=== PATIENT | male | born 2000 | race Caucasian/White ===

== ENCOUNTER 2024-05-26 15:56 | Emergency (ER) | payer OTHER ==
[~2024-05-26] VITALS: Ht 195.6 cm; Wt 83.5 kg
[2024-05-26 19:02] VITALS: BP 143/84; TEMP 99.1; O2SAT 100
[2024-05-26] MEDS ORDERED: TRAM50TA2 PO (19:10)
[2024-05-26] MEDS ORDERED: IBUP-1022 PO (19:14)
== END 2024-05-26 19:29 | disposition home or self-care (01) ==
LOC: M ED 15:56
DX: S62.604A Fracture of unspecified phalanx of right ring finger, initial encounter for closed fracture (principal); Y92.9 Unspecified place or not applicable; Y93.9 Activity, unspecified; Y99.0 Civilian activity done for income or pay; Z79.1 Long term (current) use of non-steroidal anti-inflammatories (NSAID); Z79.899 Other long term (current) drug therapy